=== PATIENT | female | born 2000 | race Caucasian/White ===

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

== ENCOUNTER 2019-12-12 22:37 | Emergency (ER) | payer SELFPAY ==
[~2019-12-12] VITALS: Ht 167.6 cm; Wt 103.0 kg
[~2019-12-12 22:37] MED LIST changes: +DIPROSONE 0.05%15 GM T
[2019-12-12 23:20] LABS: BILIRUBIN NEGATIVE (NEGATIVE); BLOOD NEGATIVE (NEGATIVE); CLARITY SL CLOUDY (CLEAR); COLOR YELLOW (YELLOW); EPITHELIAL CELLS TNTC; GLUCOSE NEGATIVE (NEGATIVE); KETONE NEGATIVE (NEGATIVE); LEUKO ESTERASE NEGATIVE (NEGATIVE); NITRITE NEGATIVE (NEGATIVE); PH 6.5 (5.0-9.0); SPECIFIC GRAVITY 1.015 (1.005-1.030); UROBILINOGEN 0.2 E.U./dl (0.2-1.0)
[2019-12-12 23:22] LABS: RBC 0-2 rbc/hpf (0-2); WBC 0-2 wbc/hpf (0-5)
== END 2019-12-12 23:26 | disposition home or self-care (01) ==
LOC: ED 22:37
PROVIDERS: Emergency Medicine
DX: Z32.01 Encounter for pregnancy test, result positive (principal); R11.10 Vomiting, unspecified

== ENCOUNTER 2020-05-09 10:38 | Emergency (ER) | payer OTHER ==
[~2020-05-09] VITALS: Wt 102.5 kg
[2020-05-09 12:07] LABS: BACTERIA 1+; BILIRUBIN NEGATIVE (NEGATIVE); BLOOD NEGATIVE (NEGATIVE); CLARITY SL CLOUDY (CLEAR); COLOR YELLOW (YELLOW); EPITHELIAL CELLS 16-20; GLUCOSE NEGATIVE (NEGATIVE); KETONE NEGATIVE (NEGATIVE); LEUKO ESTERASE NEGATIVE (NEGATIVE); NITRITE NEGATIVE (NEGATIVE); SPECIFIC GRAVITY 1.005 (1.005-1.030)
== END 2020-05-09 12:51 | disposition home or self-care (01) ==
LOC: ED 10:38
PROVIDERS: Physician Assistant
DX: T14.8XXA Other injury of unspecified body region, initial encounter (principal); X58.XXXA Exposure to other specified factors, initial encounter; Y93.89 Activity, other specified; Y92.89 Other specified places as the place of occurrence of the external cause; Y99.8 Other external cause status

== ENCOUNTER 2020-09-02 00:38 | Emergency (ER) | payer OTHER ==
[~2020-09-02] VITALS: Ht 167.6 cm; Wt 94.3 kg
[2020-09-02 01:51] LABS: BASO % 0.4 % (0.0-1.0); EOS # 0.1 10*3/uL (0.0-0.4); EOS % 0.5 % (1.0-4.0); HEMATOCRIT 36.6 % (37.0-47.0); LYMPH # 1.3 10*3/uL (1.3-4.4); MEAN CELL VOLUME 78.9 fl (81.0-99.0); MEAN CORPUSCULAR HGB 23.5 pg (27.0-31.0); MEAN CORPUSCULAR HGB CONC 29.8 g/dl (33.0-37.0); MEAN PLATELET VOLUME 10.8 fl (9.6-12.3); MONO # 0.6 10*3/uL (0.1-1.0); NEUT # 8.4 10*3/uL (2.3-7.9); NEUT % 80.6 % (47.0-73.0); PLATELET COUNT AUTOMATED 351 10*3/uL (130-400); RED BLOOD COUNT 4.64 10*6/uL (4.10-5.10); RED CELL DISTRI WIDTH 13.9 % (0-14.5); WHITE BLOOD COUNT 10.4 10*3/uL (4.8-10.8)
[2020-09-02 02:07] LABS: ALBUMIN 3.3 gm/dl (3.1-4.5); ALKALINE PHOSPHATASE 177 U/L (45-117); BUN 10 mg/dl (7-24); CHLORIDE 109 mmol/L (98-107); LIPASE 159 U/L (73-393); POTASSIUM 4.5 mmol/L (3.5-5.1); SGOT/AST 46 IU/L (3-35); SGPT/ALT 27 U/L (12-78); SODIUM 141 mmol/L (136-145); TOTAL PROTEIN 7.1 gm/dL (6.4-8.2)
[2020-09-02 03:42] LABS: BILIRUBIN Negative (Negative); BLOOD Negative (Negative); CLARITY Clear (Clear); COLOR Yellow (Yellow); GLUCOSE Negative (Negative); KETONE Negative (Negative); LEUKO ESTERASE Trace (Negative); NITRITE Negative (Negative); SPECIFIC GRAVITY 1.025 (1.001-1.030)
[2020-09-02 03:54] LABS: EPITHELIAL CELLS 31-40
[2020-09-02 03:56] LABS: BACTERIA 2+
== END 2020-09-02 05:50 | disposition home or self-care (01) ==
LOC: ED 00:38
PROVIDERS: Emergency Medicine
DX: K82.8 Other specified diseases of gallbladder (principal)

== ENCOUNTER 2021-08-21 14:59 | Emergency (ER) | payer OTHER ==
[~2021-08-21] VITALS: Wt 99.8 kg
[2021-08-21] MEDS ORDERED: AMOXICILLIN500 M2 PO (15:32)
== END 2021-08-21 15:54 | disposition home or self-care (01) ==
LOC: ED 14:59
DX: J02.9 Acute pharyngitis, unspecified (principal); H92.03 Otalgia, bilateral

== ENCOUNTER 2022-09-15 11:35 | Emergency (ER) | payer OTHER ==
[~2022-09-15] VITALS: Ht 167.6 cm; Wt 97.5 kg
[2022-09-15] MEDS ORDERED: PRENATAL ONE D1 EACH PO (13:27)
[2022-09-15] MEDS ORDERED: TYLENOL325 M1 PO (13:27)
== END 2022-09-15 13:31 | disposition home or self-care (01) ==
LOC: ED 11:35
DX: Z32.01 Encounter for pregnancy test, result positive (principal)

== ENCOUNTER 2023-01-12 18:06 | Emergency (ER) | payer OTHER ==
[~2023-01-12] VITALS: Ht 167.6 cm; Wt 103.0 kg
[~2023-01-12 18:06] MED LIST changes: +PRENATAL ONE D1 EACH PO; +TYLENOL325 M1 PO
[2023-01-12] MEDS ORDERED: AMOXICILLIN500 M3 PO (19:09)
== END 2023-01-12 19:22 | disposition home or self-care (01) ==
LOC: ED 18:06
DX: O99.612 Diseases of the digestive system complicating pregnancy, second trimester (principal); K02.9 Dental caries, unspecified; Z3A.22 22 weeks gestation of pregnancy

== ENCOUNTER 2024-07-20 01:39 | Emergency (ER) | payer OTHER ==
[~2024-07-20 01:39] MED LIST changes: +AMOXICILLIN500 M3 PO
[2024-07-20] MEDS ORDERED: Amoxicillin/Clavulanate Pota 875 MG TAB PO ONE (02:05)
[2024-07-20] MEDS ORDERED: BUPIVACAINE 0.5% 10 ML VIAL IJ ONE (02:05)
[2024-07-20] MEDS ORDERED: MELOXICAM15 MG PO (02:16)
[2024-07-20] MEDS ORDERED: AMOX-CLAV 875-1 EACH PO (02:16)
== END 2024-07-20 02:23 | disposition home or self-care (01) ==
LOC: ED 01:39
DX: K02.9 Dental caries, unspecified (principal); K04.7 Periapical abscess without sinus; R22.0 Localized swelling, mass and lump, head